=== PATIENT | female | born 1985 | race Caucasian/White ===

== ENCOUNTER 2023-11-05 20:35 | Emergency (ER) | payer OTHER, SELFPAY ==
[2023-11-05 21:16] VITALS: BP 130/70; PULSE 88; RESP 16; TEMP 36.5; O2SAT 97; BMI 28.3
--- NOTE | 2023-11-05 21:58 | ED_ITS ---
HPI - General Adult General Date Seen: 11/05/23 Chief complaint: Ear/Nose/Throat Problem Stated complaint: possible ruptured eardrum Time Seen by Provider: 11/05/23 21:58 History of Present Illness HPI narrative: 38-year-old female presenting to the ER today with concern for left ear pain. She has had a cold and cough and nasal congestion for couple of days. She developed left ear pain this morning and this afternoon felt and heard a pop in her left ear and since then has had a little bit of drainage of some bloody/purulent fluid from her left ear. She also feels some fullness in her right ear but no pain there. No fever. She has also been having some drainage and bloody drainage from that ear. She had taken Tylenol for her pain. She has a history of lupus, history of blood clots so she is on Plaquenil and warfarin. INR has recently been therapeutic. She is very stable on her INR. She has plans to travel to [facility] by plane, in 3 days. Related Data Home Medications Medication Instructions Recorded Confirmed hydroxychloroquine 200 mg tablet 200 mg PO BID 11/05/23 11/05/23 levothyroxine 125 mcg tablet 125 mcg PO DAILY 11/05/23 11/05/23 warfarin 5 mg tablet mg PO 11/05/23 Allergies Allergy/AdvReac Type Severity Reaction Status Date / Time No Known Drug Allergies Allergy Verified 11/05/23 21:22 PFSH PFS Social History Smoking Status: Never smoker How often do you have a drink containing alcohol: never AUDIT-C Alcohol total score: 0 Non-prescribed substance use: denies use service: No Exam Narrative: Exam Narrative: Constitutional: Appears well-developed and well-nourished. Alert. Conversant. Non toxic. HENT: Head: Atraumatic. Nose: Nose normal. Mouth/Throat: Oral mucosa is clear and moist. no trismus. Pharynx normal. Tonsils symmetric. No tonsillar enlargement, erythema, or exudate. Right ear: Pinna, canal, mastoid are normal. TM is dull with some opaque yellowish fluid behind it. No bulging or erythema. Left ear: Pinna, canal, mastoid normal. There is purulent/bloody fluid in the base of the canal and I suspect there is TM perforation. Difficult to see her entire TM because of the amount of fluid around it. Visualized upper portion of the TM does appear to be erythematous. Eyes: Conjunctivae normal. EOM normal. Pupils equal, round, and reactive to light. No scleral icterus. Neck: Normal range of motion. Neck supple. No tracheal deviation present. Cardiovascular: Normal rate, regular rhythm. No gallop. No friction rub. No murmur heard. Symmetric radial artery pulses Pulmonary/Chest: Effort normal. No stridor. No respiratory distress. No wheezes. No rales. No rhonchi . No tenderness. Musculoskeletal: RUE: Normal range of motion. No tenderness. No deformity LUE: Normal range of motion. No tenderness. No deformity RLE: Normal range of motion. No edema. No tenderness. No deformity LLE: Normal range of motion. No edema. No tenderness. No deformity Lymph: No cervical adenopathy. Neurological: Alert and oriented to person, place, and time. Normal strength. CN II-VII intact. No sensory deficit. GCS eye subscore is 4. GCS verbal subscore is 5. GCS motor subscore is 6. Normal coordination Skin: Skin is warm and dry. No rash noted. No pallor. Normal capillary refill. Psychiatric: Normal mood. Normal affect. Const: Vital Signs, click to edit/add: Vital Signs - 24 hr 11/05/23 21:16 Temperature 97.7 F Pulse Rate [Pulse Oximeter] 88 Respiratory Rate 16 Blood Pressure [Le ft Upper Arm] 130/70 Pulse Oximetry 97 Oxygen Delivery Me thod Room Air Course Vital Signs Vital signs: Initial Vital Signs Temperature 97.7 F 11/05/23 21:16 Temperature Source Oral 11/05/23 21:16 Pulse Rate 88 11/05/23 21:16 Respiratory Rate 16 11/05/23 21:16 Blood Pressure 130/70 11/05/23 21:16 Blood Pressure Mean 90 11/05/23 21:16 Blood Pressure Position Sitting 11/05/23 21:16 Pulse Oximetry 97 11/05/23 21:16 Oxygen Delivery Method Room Air 11/05/23 21:16 Vital Signs Temperature 97.7 F 11/05/23 21:16 Pulse Rate 88 11/05/23 21:16 Respiratory Rate 16 11/05/23 21:16 Blood Pressure 130/70 11/05/23 21:16 Pulse Oximetry 97 11/05/23 21:16 Oxygen Delivery Method Room Air 11/05/23 21:16 Temperature 97.7 F 11/05/23 21:16 Pulse Rate 88 11/05/23 21:16 Respiratory Rate 16 11/05/23 21:16 Blood Pressure 130/70 11/05/23 21:16 Pulse Oximetry 97 11/05/23 21:16 Oxygen Delivery Method Room Air 11/05/23 21:16 Medical Decision Making MDM Narrative Medical decision making narrative: This patient presents for evaluation of left ear pain and bloody/purulent drainage.. The patient has an exam consistent with acute otitis media. Also consistent/suggestive of TM perforation. There is no sign of mastoiditis, meningiti, mass, dental abscess, or peritonsillar abscess. There is no evidence of otitis externa. No foreign body. The patient will be started on antibiotics and may take Tylenol for pain. Return if increasing pain, fever, decrease in hearing, swelling or pain of the mastoid, ear discharge, or severe headache. Follow-up with ENT within the next 10-14 days for recheck. Discussed perforation, keeping the ear dry. She will also recheck with her primary care provider to get her INR rechecked within about 1-2 weeks after being on amoxicillin. Discharge Plan Discharge Clinical Impression: Otitis media, Tympanic membrane perforation Patient Disposition: Home, Self-Care Condition: Stable Instructions: Ruptured Eardrum (ED), Ear Infection (ED) Additional Instructions: As we discussed, take the antibiotics to treat the ear infection in your left ear. You have a perforated eardrum on left side. For important to keep your ear canal and eardrum dry. Use ear plugs when your in the shower. Avoid swimming or submerging her head under water. You should follow-up with ENT within 1-2 weeks for recheck. You can call the [facility] at [phone] to schedule an appointment with the ENT doctor. Their clinic is typically in [place]. If you rather, it would be appropriate to follow up with ENT through your regular doctor's office and the [facility] system. Call your regular doctors office to arrange the ENT follow-up. Please recheck your INR within 7-14 days. As we discussed if you have worsening symptoms such as high fever, severe pain, bleeding from her ear, severe headache, return to the ER right away to be rechecked. Prescriptions: No Action levothyroxine 125 mcg tablet 125 mcg PO DAILY warfarin 5 mg tablet PO hydroxychloroquine 200 mg tablet 200 mg PO BID Stand Alone Forms: [employer] Instructions
== END 2023-11-05 22:42 | disposition home or self-care (01) ==
LOC: ED 22:37
PROVIDERS: Emergency Provider Emergency Medicine
DX: H72.92 Unspecified perforation of tympanic membrane, left ear (principal); H66.92 Otitis media, unspecified, left ear
CPT/HCPCS: 99282; 99283